=== PATIENT | male | born 1950 ===

== ENCOUNTER 2019-06-02 08:31 | Observation (INO) ==
[2019-06-02] MEDS ORDERED: NITROGLYCERIN 2% OINT 1 INCH/GM PACK TOP STA (09:09)
[2019-06-02] MEDS ORDERED: ASPIRIN CHEW 81 MG TABLET PO STA (09:09)
[2019-06-02] MEDS ORDERED: ENOXAPARIN 120 MG/0.8 ML SYRINGE SUBCUT STA (09:09)
[2019-06-02 09:22] LABS: Basophils % 0.6 % (0.0-0.8); Eosinophils # 0.2 10*3/uL (0.0-0.87); Eosinophils % 3.1 % (0.00-10.9); Hematocrit 44.3 VOL% (42.0-52.0); Hemoglobin 13.7 GM/DL (14.0-18.0); Immature Granulocytes % 0.3 %; Immature Granulocytes Absolute 0.02 #; Lymphocytes # 2.5 10*3/uL (1.4-4.0); Lymphocytes % 34.7 % (21.2-54.2); Mean Corpuscular HGB Conc 30.9 GM/DL (32-36); Mean Platelet Volume 9.6 FL (9.6-12.0); Monocytes % 12.9 % (1.7-12.7); Neutrophils % 48.4 % (38.7-73.9); Platelet Count 255 T/CUMM (130-400); Red Blood Count 5.34 MC/CUMM (3.8-5.5); White Blood Count 7.1 T/CUMM (4-12)
[2019-06-02 09:31] LABS: PT Patient Result 10.7 SECS; Partial Thromboplastin Time 26.3 SECS (0-40)
[2019-06-02 09:44] LABS: Albumin 3.7 G/DL (3.4-5.0); Bilirubin,Total 0.8 MG/DL (0.2-1.0); Calcium 8.9 MG/DL (8.5-10.1); Osmolality,Calculated 280.1 MOS/KG (273-304); Total Protein 7.1 G/DL (6.4-8.3)
[2019-06-02] MEDS ORDERED: FUROSEMIDE 40 MG/4 ML VIAL IV STA (10:30)
[2019-06-02] MEDS ORDERED: methylPREDNISolone SOD SUC 125 MG/2 ML VIAL IV STA (10:31)
[2019-06-02] MEDS ORDERED: ALBUTEROL NEB SOLN 5 MG/ML 20 ML/BOTTLE CONT NEB STA (10:31)
[2019-06-02] MEDS ORDERED: methylPREDNISolone SOD SUC 125 MG/2 ML VIAL ONE (10:32)
[2019-06-02 11:10] LABS: Barbiturates Screen,Urine Negative (Negative); Benzodiazepines Screen,Urine Negative (Negative); Cannabinoid Screen,Urine Negative (Negative); Opiate Screen,Urine Negative (Negative); Phencyclidine Screen,Urine Negative (Negative)
[2019-06-02] MEDS ORDERED: ONDANSETRON 4 MG/2 ML VIAL IV PRN (12:35)
[2019-06-02] MEDS ORDERED: ACETAMINOPHEN 325 MG TABLET PO PRN (12:35)
[2019-06-02] MEDS ORDERED: DEXTROSE 10% 250 ML BAG IV PRN (12:35)
[2019-06-02] MEDS ORDERED: GLUCAGON 1 MG VIAL IM PRN (12:35)
[2019-06-02] MEDS: ALBUTEROL/IPRATROPIUM 3 ML NEB RESP TX SCH ×2 (13:45→19:13)
[2019-06-02] MEDS: INSULIN REGULAR 100 UNIT/ML SUBCUT SCH ×2 (16:21→21:04)
[2019-06-02] MEDS: FUROSEMIDE 40 MG/4 ML VIAL IV SCH (16:32)
[2019-06-02] MEDS: NICOTINE 7 MG/24 HR PATCH TRANSDERM SCH (16:32)
[2019-06-02] MEDS: CARVEDILOL 25 MG TABLET PO SCH (16:32)
[2019-06-02] MEDS ORDERED: ENOXAPARIN 40 MG/0.4 ML SYRINGE SUBCUT SCH (21:00)
[2019-06-03] MEDS: ALBUTEROL/IPRATROPIUM 3 ML NEB RESP TX SCH ×2 (01:02→07:56)
[2019-06-03 05:07] LABS: Basophils % 0.2 % (0.0-0.8); Hematocrit 44.1 VOL% (42.0-52.0); Hemoglobin 13.8 GM/DL (14.0-18.0); Immature Granulocytes % 0.3 %; Immature Granulocytes Absolute 0.04 #; Lymphocytes % 16.1 % (21.2-54.2); Mean Corpuscular HGB Conc 31.3 GM/DL (32-36); Mean Corpuscular Volume 82.6 FL (87-102); Mean Platelet Volume 9.9 FL (9.6-12.0); Monocytes % 9.6 % (1.7-12.7); Neutrophils % 73.8 % (38.7-73.9); Platelet Count 265 T/CUMM (130-400); Red Blood Count 5.34 MC/CUMM (3.8-5.5); Red Cell Distribution Width 14.9 % (9.3-17.3); White Blood Count 12.1 T/CUMM (4-12)
[2019-06-03] MEDS ORDERED: GLIMEPIRIDE 2 MG TABLET PO SCH (08:00)
[2019-06-03] MEDS: CARVEDILOL 25 MG TABLET PO SCH (08:31)
[2019-06-03] MEDS: INSULIN REGULAR 100 UNIT/ML SUBCUT SCH ×2 (08:31→11:36)
[2019-06-03] MEDS: NICOTINE 7 MG/24 HR PATCH TRANSDERM SCH (08:32)
[2019-06-03] MEDS: FUROSEMIDE 40 MG/4 ML VIAL IV SCH (08:32)
[2019-06-03] MEDS ORDERED: ASPIRIN EC 81 MG TABLET PO SCH (09:00)
[2019-06-03] MEDS ORDERED: ENOXAPARIN 40 MG/0.4 ML SYRINGE SUBCUT SCH (09:00)
[2019-06-03] MEDS ORDERED: PANTOPRAZOLE 40 MG TABLET PO SCH (09:00)
[2019-06-03] MEDS ORDERED: POTASSIUM CHLORIDE 10 MEQ TABLET PO SCH (09:00)
[2019-06-03] MEDS ORDERED: ATORVASTATIN 40 MG TABLET PO SCH (09:00)
[2019-06-03 11:09] VITALS: BP 140/80
== END 2019-06-03 11:43 ==
LOC: N.ED 08:31 → N.2E 08:31
PROVIDERS: ADMIT Internal Medicine Geriatric Medicine; ATTEND Internal Medicine Geriatric Medicine

== ENCOUNTER 2019-06-12 22:19 | Observation (INO) ==
[2019-06-12 22:58] LABS: Basophils % 0.4 % (0.0-0.8); Eosinophils # 0.3 10*3/uL (0.0-0.87); Eosinophils % 3.2 % (0.00-10.9); Hematocrit 43.3 VOL% (42.0-52.0); Hemoglobin 13.8 GM/DL (14.0-18.0); Immature Granulocytes % 0.4 %; Immature Granulocytes Absolute 0.03 #; Lymphocytes # 2.7 10*3/uL (1.4-4.0); Lymphocytes % 32.9 % (21.2-54.2); Mean Corpuscular HGB Conc 31.9 GM/DL (32-36); Mean Platelet Volume 10.2 FL (9.6-12.0); Monocytes % 12.4 % (1.7-12.7); Neutrophils % 50.7 % (38.7-73.9); Platelet Count 185 T/CUMM (130-400); Red Blood Count 5.28 MC/CUMM (3.8-5.5); Red Cell Distribution Width 15.2 % (9.3-17.3); White Blood Count 8.1 T/CUMM (4-12)
[2019-06-12 23:08] LABS: PT Patient Result 10.4 SECS; Partial Thromboplastin Time 25.3 SECS (0-40)
[2019-06-12 23:22] LABS: Albumin 3.4 G/DL (3.4-5.0); Bilirubin,Total 0.4 MG/DL (0.2-1.0); Calcium 8.6 MG/DL (8.5-10.1); Osmolality,Calculated 284.3 MOS/KG (273-304)
[2019-06-13] MEDS ORDERED: ALBUTEROL/IPRATROPIUM 3 ML NEB RESP TX STA (00:19)
[2019-06-13] MEDS ORDERED: methylPREDNISolone SOD SUC 125 MG/2 ML VIAL IV STA (00:19)
[2019-06-13] MEDS ORDERED: FUROSEMIDE 40 MG/4 ML VIAL IV STA (00:23)
[2019-06-13] MEDS ORDERED: hydrALAZINE 20 MG/1 ML VIAL IV STA (01:29)
[2019-06-13] MEDS ORDERED: ALBUTEROL/IPRATROPIUM 3 ML NEB RESP TX PRN (03:11)
[2019-06-13] MEDS ORDERED: MAGNESIUM SULF RIDER 4 GM in PREMIX 1 EACH IV PRN (03:11)
[2019-06-13] MEDS ORDERED: ONDANSETRON 4 MG/2 ML VIAL IV PRN (03:11)
[2019-06-13] MEDS ORDERED: ACETAMINOPHEN 325 MG TABLET PO PRN (03:11)
[2019-06-13] MEDS ORDERED: MAGNESIUM SULF RIDER 2 GM in PREMIX 1 EACH IV PRN (03:11)
[2019-06-13] MEDS ORDERED: DEXTROSE 50% 25 GM/50 ML VIAL IV PRN (03:54)
[2019-06-13] MEDS ORDERED: GLUCAGON 1 MG VIAL IM PRN (03:54)
[2019-06-13 05:51] LABS: Basophils % 0.4 % (0.0-0.8); Eosinophils % 0.4 % (0.00-10.9); Hematocrit 46.5 VOL% (42.0-52.0); Hemoglobin 14.6 GM/DL (14.0-18.0); Immature Granulocytes % 2.1 %; Immature Granulocytes Absolute 0.18 #; Lymphocytes # 1.5 10*3/uL (1.4-4.0); Lymphocytes % 17.2 % (21.2-54.2); Mean Corpuscular HGB Conc 31.4 GM/DL (32-36); Mean Corpuscular Volume 81.9 FL (87-102); Mean Platelet Volume 10.3 FL (9.6-12.0); Monocytes % 3.2 % (1.7-12.7); Neutrophils % 76.7 % (38.7-73.9); Platelet Count 183 T/CUMM (130-400); Red Blood Count 5.68 MC/CUMM (3.8-5.5); Red Cell Distribution Width 15.4 % (9.3-17.3); White Blood Count 8.4 T/CUMM (4-12)
[2019-06-13 06:22] LABS: Calcium 9.2 MG/DL (8.5-10.1)
[2019-06-13] MEDS: PANTOPRAZOLE 40 MG TABLET PO SCH (08:41)
[2019-06-13] MEDS: CARVEDILOL 25 MG TABLET PO SCH ×2 (08:44→21:16)
[2019-06-13] MEDS: ENOXAPARIN 40 MG/0.4 ML SYRINGE SUBCUT SCH (08:44)
[2019-06-13] MEDS: predniSONE 20 MG TABLET PO SCH ×2 (08:44→21:16)
[2019-06-13] MEDS: GLIMEPIRIDE 2 MG TABLET PO SCH (08:44)
[2019-06-13] MEDS: INSULIN LISPRO 100 UNIT/ML SUBCUT SCH ×4 (08:44→21:16)
[2019-06-13] MEDS: ASPIRIN EC 81 MG TABLET PO SCH (08:44)
[2019-06-13] MEDS: NICOTINE 7 MG/24 HR PATCH TRANSDERM SCH (09:20)
[2019-06-13] MEDS: ATORVASTATIN 40 MG TABLET PO SCH (21:16)
[2019-06-14 06:06] LABS: Basophils % 0.1 % (0.0-0.8); Hematocrit 43.8 VOL% (42.0-52.0); Immature Granulocytes % 0.5 %; Immature Granulocytes Absolute 0.09 #; Lymphocytes # 1.8 10*3/uL (1.4-4.0); Lymphocytes % 9.9 % (21.2-54.2); Mean Corpuscular Volume 81.1 FL (87-102); Mean Platelet Volume 10.7 FL (9.6-12.0); Monocytes % 5.4 % (1.7-12.7); Neutrophils % 84.1 % (38.7-73.9); Platelet Count 187 T/CUMM (130-400); Red Cell Distribution Width 14.9 % (9.3-17.3); White Blood Count 17.7 T/CUMM (4-12)
[2019-06-14 06:36] LABS: Osmolality,Calculated 285.3 MOS/KG (273-304)
[2019-06-14] MEDS: predniSONE 20 MG TABLET PO SCH (09:10)
[2019-06-14] MEDS: GLIMEPIRIDE 2 MG TABLET PO SCH (09:10)
[2019-06-14] MEDS: ASPIRIN EC 81 MG TABLET PO SCH (09:10)
[2019-06-14] MEDS: PANTOPRAZOLE 40 MG TABLET PO SCH (09:11)
[2019-06-14] MEDS: INSULIN LISPRO 100 UNIT/ML SUBCUT SCH ×4 (09:11→21:29)
[2019-06-14] MEDS: CARVEDILOL 25 MG TABLET PO SCH (09:13)
[2019-06-14] MEDS: NICOTINE 7 MG/24 HR PATCH TRANSDERM SCH (09:22)
[2019-06-14] MEDS: ENOXAPARIN 40 MG/0.4 ML SYRINGE SUBCUT SCH (09:22)
[2019-06-14] MEDS: CARVEDILOL 12.5 MG TABLET PO SCH (16:23)
[2019-06-14] MEDS: ATORVASTATIN 40 MG TABLET PO SCH (21:29)
[2019-06-15 05:01] LABS: Basophils % 0.2 % (0.0-0.8); Eosinophils % 0.1 % (0.00-10.9); Hematocrit 44.1 VOL% (42.0-52.0); Hemoglobin 14.2 GM/DL (14.0-18.0); Immature Granulocytes % 0.3 %; Immature Granulocytes Absolute 0.04 #; Lymphocytes # 3.2 10*3/uL (1.4-4.0); Lymphocytes % 26.3 % (21.2-54.2); Mean Corpuscular HGB Conc 32.2 GM/DL (32-36); Mean Corpuscular Volume 80.6 FL (87-102); Mean Platelet Volume 10.1 FL (9.6-12.0); Monocytes % 10.8 % (1.7-12.7); Neutrophils % 62.3 % (38.7-73.9); Platelet Count 172 T/CUMM (130-400); Red Blood Count 5.47 MC/CUMM (3.8-5.5); Red Cell Distribution Width 14.9 % (9.3-17.3); White Blood Count 12.1 T/CUMM (4-12)
[2019-06-15 05:32] LABS: Calcium 8.3 MG/DL (8.5-10.1); Osmolality,Calculated 285.1 MOS/KG (273-304); Risk Ratio 2.19; Thyroid Stimulating Hormone 1.19 uIU/ml (0.358-3.74); VLDL CHOLESTEROL 20.6 MG/DL
[2019-06-15] MEDS: INSULIN LISPRO 100 UNIT/ML SUBCUT SCH ×2 (08:30→12:23)
[2019-06-15] MEDS ORDERED: POTASSIUM CHLORIDE 20 MEQ TABLET PO ONE (08:59)
[2019-06-15] MEDS: NICOTINE 7 MG/24 HR PATCH TRANSDERM SCH (09:32)
[2019-06-15] MEDS: GLIMEPIRIDE 2 MG TABLET PO SCH (09:34)
[2019-06-15] MEDS: PANTOPRAZOLE 40 MG TABLET PO SCH (09:34)
[2019-06-15] MEDS: ASPIRIN EC 81 MG TABLET PO SCH (09:34)
[2019-06-15] MEDS: CARVEDILOL 12.5 MG TABLET PO SCH (09:34)
[2019-06-15] MEDS: ENOXAPARIN 40 MG/0.4 ML SYRINGE SUBCUT SCH (09:35)
[2019-06-15] MEDS ORDERED: SORBITOL 30 ML BOTTLE PO ONE (12:53)
[2019-06-15 15:53] VITALS: BP 157/83
== END 2019-06-15 16:14 ==
LOC: N.ED 22:19 → N.EDINP 22:19 → N.5E 06-13 03:52
PROVIDERS: ADMIT Internal Medicine; ATTEND Internal Medicine